=== PATIENT | male | born 1975 | race Caucasian/White ===

== ENCOUNTER 2022-10-31 14:52 | Emergency (ER) | payer BC, OTHER ==
[2022-10-31] MEDS ORDERED: Famotidine 20 MG/2 ML SDV IVPUSH ONE (15:05)
[2022-10-31] MEDS ORDERED: Sodium Chloride 0.9% 1,000 ML IV ONE (15:05)
[2022-10-31] MEDS ORDERED: diphenhydrAMINE 50 MG/ML SDV IVPUSH ONE (15:05)
[2022-10-31] MEDS ORDERED: methylPREDNISolone Sodium Succinate 125 MG/2 ML SDV IVPUSH ONE (15:05)
== END 2022-10-31 17:03 | disposition home or self-care (01) ==
LOC: MW.ED 14:52
DX: T78.40XA Allergy, unspecified, initial encounter (principal); Z91.030 Bee allergy status
CPT/HCPCS: 96361; 96374; 96375; 99282; J1200; J2930; J3490; J7030; 99283